=== PATIENT | female | born 1945 | race Caucasian/White ===

== ENCOUNTER 2021-10-28 06:38 | Day surgery (SDC) | payer MEDICARE, BC ==
[2021-10-25 14:20] VITALS: BMI 20.9
[2021-10-28] MEDS ORDERED: Lidocaine 1% MPF 2 ML VIAL ONE (06:53)
[2021-10-28] MEDS ORDERED: Lidocaine 1% PF 5 ML VIAL ONE (08:02)
[2021-10-28] MEDS ORDERED: PROPOFOL 20 ML ONE ×2 (08:03→09:00)
== END 2021-10-28 09:39 | disposition home or self-care (01) ==
LOC: CSHSDC 06:38
PROVIDERS: ATTEND Internal Medicine Gastroenterology
PROC: 0DB38ZZ Excision of Lower Esophagus, Via Natural or Artificial Opening Endoscopic (ICD-10-PCS; principal; 2021-10-28)
PROC: 0DBN8ZZ Excision of Sigmoid Colon, Via Natural or Artificial Opening Endoscopic (ICD-10-PCS; 2021-10-28)
PROC: 0DBL8ZZ Excision of Transverse Colon, Via Natural or Artificial Opening Endoscopic (ICD-10-PCS; 2021-10-28)
DX: K21.00 Gastro-esophageal reflux disease with esophagitis, without bleeding (principal); D12.5 Benign neoplasm of sigmoid colon; D12.3 Benign neoplasm of transverse colon; K22.10 Ulcer of esophagus without bleeding; K44.9 Diaphragmatic hernia without obstruction or gangrene; K57.30 Diverticulosis of large intestine without perforation or abscess without bleeding
CPT/HCPCS: 88305; J2704

== ENCOUNTER 2022-09-10 09:54 | Outpatient (CLI) | payer MEDICARE, BC ==
[2022-09-10 11:37] LABS: Hemoglobin 12.5 g/dL (12.0-15.5); Mean Corpuscular HGB CONC 33.5 g/dL (32.0-36.0); Mean Corpuscular Hemoglobin 31.5 pg (27.0-33.0); Mean Platelet Volume 10.5 fl (7.4-10.4); Platelet Count 195 10x3/uL (150-450); RBC Distribution Width 13.2 % (11.5-14.5); Red Blood Cell (RBC) Count 3.97 10x6/uL (3.90-5.03); White Blood Cell (WBC) Count 5.4 10x3/uL (3.5-10.5)
[2022-09-10 12:03] LABS: Anion Gap 15 mmol/L (10-20); BUN (Urea Nitrogen) 9 mg/dL (9.8-20.1); Calc. Creatinine Clearance 0 mL/min (70-130); Calcium 9.3 mg/dL (7.8-10.44); Carbon Dioxide 23 mmol/L (23-31); Chloride 106 mmol/L (98-107); Estimated GFR 86; Glucose 90 mg/dL (83-110); Potassium 4.3 mmol/L (3.5-5.1); Sodium 140 mmol/L (136-145)
== END 2022-09-10 09:55 | disposition home or self-care (01) ==
LOC: CSHLAB 09:54
PROVIDERS: ATTEND Otolaryngology Plastic Surgery within the Head & Neck
DX: Z01.812 Encounter for preprocedural laboratory examination (principal); J38.4 Edema of larynx; R06.1 Stridor; R49.0 Dysphonia
CPT/HCPCS: 80048; 85027

== ENCOUNTER 2022-09-15 05:59 | Day surgery (SDC) | payer MEDICARE, BC ==
[2022-09-11 14:29] VITALS: BMI 21.2
[2022-09-15] MEDS ORDERED: Oxymetazoline HCl 0.05% ( 15 ML ) ONE (06:33)
[2022-09-15] MEDS ORDERED: Lidocaine 4% Topical Sol 50 ML BOT ONE (06:35)
[2022-09-15] MEDS ORDERED: EPINEPHrine 1 MG/ML AMP ONE (06:36)
[2022-09-15] MEDS ORDERED: PROPOFOL 60 ML ONE (06:51)
[2022-09-15] MEDS ORDERED: Glycopyrrolate 0.2 MG/ML 5 ML SYRINGE ONE (06:52)
[2022-09-15] MEDS ORDERED: Dexamethasone 20 MG/5 ML VIAL ONE (06:52)
[2022-09-15] MEDS ORDERED: Fentanyl 100 MCG/2 ML VIAL ONE (06:52)
[2022-09-15] MEDS ORDERED: Ondansetron PF 4 MG/2 ML Vial ONE (06:52)
[2022-09-15] MEDS ORDERED: Midazolam HCl 2 mg/2 ml Vial ONE (06:52)
[2022-09-15] MEDS ORDERED: PHENYLEPHRINE-NS 100 MCG/ML 10 ML SYRINGE ONE (07:56)
[2022-09-15] MEDS ORDERED: Labetalol HCl 100 MG/20 ML VIAL ONE (08:11)
== END 2022-09-15 09:20 | disposition home or self-care (01) ==
LOC: CSHSDC 05:59
PROVIDERS: ATTEND Otolaryngology Plastic Surgery within the Head & Neck
PROC: 0C5V8ZZ Destruction of Left Vocal Cord, Via Natural or Artificial Opening Endoscopic (ICD-10-PCS; principal; 2022-09-15)
PROC: 0C5T8ZZ Destruction of Right Vocal Cord, Via Natural or Artificial Opening Endoscopic (ICD-10-PCS; 2022-09-15)
PROC: 0BJ08ZZ Inspection of Tracheobronchial Tree, Via Natural or Artificial Opening Endoscopic (ICD-10-PCS; 2022-09-15)
PROC: 0CBS8ZX Excision of Larynx, Via Natural or Artificial Opening Endoscopic, Diagnostic (ICD-10-PCS; 2022-09-15)
DX: J38.1 Polyp of vocal cord and larynx (principal); R49.0 Dysphonia; I25.10 Atherosclerotic heart disease of native coronary artery without angina pectoris; Z98.890 Other specified postprocedural states; Z87.891 Personal history of nicotine dependence; Z88.0 Allergy status to penicillin; Z79.899 Other long term (current) drug therapy
CPT/HCPCS: 88305; 93005; 93010; J0171; J1100; J2250; J2405; J2704; J3010

== ENCOUNTER 2024-04-26 09:23 | Outpatient (CLI) | payer MEDICARE | END 2024-04-26 09:24 | disposition home or self-care (01) | LOC: CSHCP 09:23 | PROVIDERS: ATTEND Student in an Organized Health Care Education/Training Program | DX: R91.1 Solitary pulmonary nodule (principal) | CPT/HCPCS: 94010; 94729; 94760 ==